=== PATIENT | male | born 1950 | race Caucasian/White ===

== ENCOUNTER 2018-02-09 10:06 | Emergency (ER) | payer OTHER ==
[~2018-02-09] VITALS: Ht 182.9 cm; Wt 95.3 kg
[2018-02-09 10:09] VITALS: Ht 182.9 cm; Wt 95.3 kg
[2018-02-09 10:39] VITALS: BP 132/91
== END 2018-02-09 10:39 | disposition left against medical advice (07) ==
LOC: ED 10:06
DX: R55 Syncope and collapse (principal); R42 Dizziness and giddiness